=== PATIENT | male | born 1970 | race Caucasian/White ===

== ENCOUNTER → 2016-08-17 | Outpatient (CLI) | payer OTHER | END | disposition home or self-care (01) | LOC: RAD.S 07:45 | DX: M54.2 Cervicalgia (principal) ==

== ENCOUNTER → 2016-08-18 | Outpatient (CLI) | payer OTHER | END | disposition home or self-care (01) | LOC: ONCM 14:30 → PTH.S 15:00 → ONCM 15:00 → RAD.S 15:06 | DX: C80.1 Malignant (primary) neoplasm, unspecified (principal); N28.89 Other specified disorders of kidney and ureter ==

== ENCOUNTER → 2016-08-24 | Outpatient (CLI) | payer OTHER | END | disposition home or self-care (01) | LOC: RAD.S 08-23 11:26 → PTH.S 14:00 → RAD.S 14:30 | DX: Q63.1 Lobulated, fused and horseshoe kidney (principal); N28.89 Other specified disorders of kidney and ureter ==

== ENCOUNTER 2016-08-31 06:38 | Day surgery (SDC) | payer OTHER ==
[~2016-08-31] VITALS: Ht 193 cm; Wt 87.7 kg
--- NOTE | ~2016-08-31 | ECH ---
Transthoracic Echocardiography Report (TTE) Demographics Patient Name JORGE HUYNH Date of Study 08/31/2016 Patient Number [id number] Visit Number [id number] Date of 1970 Room Number Accession Number [id number] Gender Male Age 45 year(s) Referring Berta Hannon [employer] Media Program Director Hali Hull Physician [facility] Phys[facility] Interpreting [place] Sunny Lopez MD Software Developer Intern Physician Supervising Ordering Physician Berta Hannon MD/BROOKE DELUNA Nurse Stress Respiratory Equipment Assistant Conclusions Summary Limited study for ejection fraction. Doppler not performed. Technically good exam. The estimated left ventricular ejection fraction is 65%. Normal appearing valves. Normal study. Procedure Type of Study TTE procedure:Echo Limited SF. Procedure Date Date: 08/31/2016 Start: 11:15 AM Technical Quality: Good visualization Indications:Pre-chemotherapy. Appropriate Use Criteria: 9 Height: 76 inches Weight: 193 pounds BSA: 2.18 m Rhythm: Irregular HR: 72 bpm BP: 110/71 mmHg M-Mode/2D Measurements LV Diastolic Dimension: 4.78 cm LV Systolic Dimension: 3.01 cm LV Septum Diastolic: 0.8 cm LV PW Diastolic: 0.84 cm AO Root Dimension: 3.06 cm LA Dimension: 3.21 cm RV Diastolic Dimension: 3.37 cm LA volume: 35.92 ml LA volume index: 16 ml/m RV Base: 3.5 cm RV Mid: 2.2 cm TAPSE: 2.8 cm Doppler Measurements RA Area: 18.08 cm Findings Left Ventricle Normal left ventricle size and function. Right Ventricle Normal right ventricle structure and function. Left Atrium Normal left atrial size. Right Atrium Normal right atrial size. Mitral Valve Normal mitral valve structure and function. Aortic Valve Normal aortic valve structure and function. Tricuspid Valve Normal tricuspid valve structure and function. Pulmonic Valve Normal pulmonic valve structure and function. Pericardial Effusion No evidence of pericardial effusion. Miscellaneous Visualized portions of the aortic root and ascending aorta appear normal in size. Pleural Effusion No evidence of pleural effusion. Signature
== END 2016-08-31 11:35 | disposition home or self-care (01) ==
LOC: RAD.S 06:38 → EDSTATUS 08:00 → RAD.S 11:35
PROC: 0TB13ZX Excision of Left Kidney, Percutaneous Approach, Diagnostic (ICD-10-PCS; principal; 2016-08-31)
DX: C64.2 Malignant neoplasm of left kidney, except renal pelvis (principal); Z79.899 Other long term (current) drug therapy

== ENCOUNTER → 2017-02-27 | Outpatient (CLI) | payer OTHER | END | disposition home or self-care (01) | LOC: RAD.S 11:00 | DX: R10.9 Unspecified abdominal pain (principal); R14.0 Abdominal distension (gaseous); R11.0 Nausea; C80.1 Malignant (primary) neoplasm, unspecified; C64.2 Malignant neoplasm of left kidney, except renal pelvis; C79.51 Secondary malignant neoplasm of bone; K59.00 Constipation, unspecified; Z98.890 Other specified postprocedural states ==